=== PATIENT | male | born 2000 | race Caucasian/White ===

== ENCOUNTER 2023-11-27 16:55 | Inpatient (IN) | payer OTHER, SELFPAY ==
[2023-11-27] VITALS (10 sets, daily range): BP systolic 103–253; BP diastolic 64–200; PULSE 46–95; RESP 8–23; TEMP 36.8–36.9; O2SAT 24–100; BMI 21.7; BMI 23.6; BMI 21.8
--- NOTE | 2023-11-27 17:08 | RAD_ITS ---
STUDY: X-RAY - LEFT TIBIA AND FIBULA REASON FOR EXAM: Male, 23 years old. Injury/Pain TECHNIQUE: 2 view(s) of the tibia and fibula were obtained. COMPARISON: None. FINDINGS: Markedly limited by extensive overlying artifact. Comminuted angulated fractures of the distal tibia and fibula with moderate medial displacements of the distal fracture fragments and mild anterior angulation of the fracture apices. RAD/Tibia & Fibula 2 Views IMPRESSION: Limited by extensive overlying artifact. Displacement and angulation, fractures of the distal tibia and fibula. Electronically Signed: Mehdi Negron MD at 17:25 EDT ,
[2023-11-27] MEDS: 0.9% Normal Saline (1000mL) 1,000 ML 150 ML IV (17:15)
--- NOTE | 2023-11-27 17:20 | ED.VIS.LOWEX ---
HPI History of Present Illness Chief Complaint: Lower Extremity Injury Detail of Chief Complaint: Deformity left leg due to blunt trauma Informant: patient and EMS Occured/Mechanism Mechanism/Context: Yes blunt trauma Comment: Treated with 1 foot diameter fell onto his leg. Onset/Context/Timing Onset: Hours Context: Sudden Onset Timing: Continuous Quality of Pain: Dull, Aching and Throbbing Location: Deformity left leg Current Severity: Mild Maximum Severity: Moderate Associated Symptoms Associated Symptoms: Positive for Loss of Funtion; Negative for Parasthesia or Weakness Narrative Narrative: Patient is a 23-year-old male who presents with deformity to his left leg. Arrived by ambulance. Tree branch with the foot diameter landed on his leg. He has not eaten since noon. He denies allergies to any medication. He is allergic to cinnamon. He has had no prior injury of trauma. Prior similar symptoms: No Recent Illness/Hospitalization: No [facility] Medical History (Updated 11/27/23 @ 17:[address] Raymond Benjamin MD) Left tibial fracture Medical History no medical history no medical history Allergy/AdvReac Type Severity Reaction Status Date / Time cinnamon Allergy Severe Anaphylaxis Verified 11/27/23 16:58 Surgical History no surgical history no surgical history Social History Smoking Status: Never smoker ROS ROS ED Constitutional Constitutional ED: Denies chills or fever(s) Eyes Eyes: Denies blurry vision or change in vision Cardiovascular Cardiovascular: Denies chest pain or palpitations Respiratory/Chest Respiratory/Chest: Denies dyspnea or dyspnea on exertion Gastrointestinal Gastrointestinal: Denies abdominal pain, nausea or vomiting Musculoskeletal Musculoskeletal: Denies arthralgias, back pain, myalgias or neck pain Integumentary Denies rash Neurologic Neurologic: Denies paresthesias or weakness Hematologic/Lymphatic Hematologic/Lymphatic: Denies easy bleeding or easy bruising EXAM Physical Exam Const Vital Signs: 11/27/23 16:58 Temperature 98.2 F Temperature Source Temporal Pulse Rate 77 Respiratory Rate 16 Blood Pressure 124/84 H Blood Pressure Mean 97 Pulse Ox 97 Oxygen Delivery Method Room Air Positive well nourished and well developed General Appearance ED: well developed and NAD HEENT Reports moist mucous membranes normocephalic and atraumatic Eyes PERRL Eyes Narrative: Extract muscle intact. Sclera is anicteric. No subconjunctival hemorrhage. Neck full ROM and supple Neck Narrative: No posterior midline pain. Resp normal respiratory effort, no retractions and clear to auscultation bilaterally Cardio regular rate, regular rhythm, S1 normal heart sound, S2 normal heart sound and no murmurs GI non-tender, non-distended and no masses GI Narrative: No pain the patient in the pelvis. Auscultation: normoactive bowel sounds Palpation: soft Back/Spine no CVA tenderness Extremity Negative for normal to inspection or full ROM Extremity Narrative: Obvious deformity left leg. DP PT pulse palpable. Able to move his toes. There is no evidence of trauma or swelling of the knee. There is no pain ovation of the lateral medial malleolus. General Extremety ED: Negative for weight-bearing difficulty General Extremity: Negative for weight-bearing difficulty Neuro oriented x3 and CN's II-XII intact bilaterally Sensorium / Orientation: alert Psych mental status grossly normal Skin no wounds Lesions: no lesions Rashes: no rashes MDM MDM MDM Narrative Medical decision making narrative: X-ray was obtained to the extent of injury. Patient has a comminuted midshaft fracture of the left tibia and fibula. Case was discussed with Dr. Barney and who is on for orthopedics. He would like him in a posterior splint. He will admit the patient. Radiography Diagnostic Testing: Clinical Impression(s) from Imaging Studies Tibia/Fibula X-Ray 11/27/23 17:08 IMPRESSION: Limited by extensive overlying artifact. Displacement and angulation, fractures of the distal tibia and fibula. Electronically Signed: Mehdi Negron MD at 17:25 EDT , Procedures Procedural Sedation 1 (Initial Baseline): Consent Signed: Yes Any Problems With Anesthesia: No You/Your family experience fever (hyperthermia) w/anesthesia: No Sedation medication: Propofol Dose: 200 Route: IV Total Moderate Sedation Units: 15 Maliampati Score: Class I ASA Classification: E and I Comment:: Timeout was called. Patient received a total of 200 mg of propofol. A fabricated posterior short leg splint was applied as well as a sugar-tong splint because of laxity with valgus deformity. This stabilized his leg. He did desaturate to 84%. He was placed on nonrebreather mask and jaw left. Patient did become bradycardic to 48. He was a sinus rhythm initially. After application of posterior leg and sugar-tong splint patient received 0.5 of Dilaudid since he is now awake and talking and complaining of pain. His leg was positioned over soft blankets for comfort. He states the pain is much better at this time. Discharge Plan Triage Chief Complaint: Lower Extremity Injury ED Provider: Raymond Benjamin Dx/Rx/DC Orders Clinical Impression: Nondisplaced comminuted fracture of shaft of left fibula, Displaced comminuted fracture of shaft of left tibia, initial encounter for closed fracture Primary Care Provider: Care Physician,No Primary Referrals: Care Physician,No Primary [Primary Care Provider] - Disposition Disposition: Acute Care Hospital [facility]
--- NOTE | 2023-11-27 17:24 | CON.PCM.OR_ITS ---
HPI Consult Data Date of Consult: 11/27/23 HPI Narrative HPI Narrative: MARIELY CLAYTON, is a 23 M who presents with L midshaft tib fib fracture. Called by Dr. Fonseca. Rich individual tree branch fell onto the leg. [facility] Medical History (Updated 11/27/23 @ 17:25 by Neeraj Lepe MD) Left tibial fracture Medical History no medical history Allergy/AdvReac Type Severity Reaction Status Date / Time cinnamon Allergy Severe Anaphylaxis Verified 11/27/23 16:58 Surgical History no surgical history Social History Smoking Status: Never smoker Vital Signs Vital Signs Vital Signs: 11/27/23 16:58 Temperature 98.2 F Temperature Source Temporal Pulse Rate 77 Respiratory Rate 16 Blood Pressure 124/84 H Blood Pressure Mean 97 Pulse Ox 97 Oxygen Delivery Method Room Air Weight Weight: 178 lb 9.191 oz Body Mass Index (BMI) 21.7 Physical Exam Narrative per dr fonseca closed, nvi no signs of excess pain or compartment syndrome. Imaging comminuted L midshaft tib fib fracture Assessment & Plan Assessment/Plan (1) Left tibial fracture: PLAN: 23 yr M L tibia fracture. Asked the ED doc to splint for now. Will admit and plan for ORIF with IM nail. neuro checks q 4h. elevate rest and ice, NWB. Will see about timeline for case but most likely tomorrow.
--- NOTE | 2023-11-27 17:42 | NURSING ---
MED SURG MOLLRICK LT COMMINUTED FRACTURE TIBULA, FIBULA
[2023-11-27] MEDS: Propofol 200 MG/20 ML Vial IV BOLUS (17:50)
[2023-11-27] MEDS: HYDROmorphone 0.5 MG/0.5 ML SYRINGE IV (17:53)
[2023-11-27] MEDS: Ibuprofen 600 MG Tablet PO (19:08)
[2023-11-27] MEDS: Acetaminophen 500 MG Tablet 1000 MG PO (19:08)
--- NOTE | 2023-11-27 19:53 | CONS.ORTHO ---
HPI Consult Data Date of Consult: 11/27/23 HPI Narrative HPI Narrative: MARIELY CLAYTON, is a 23 M who presents with a left midshaft tibia and fibula fracture sustained today at 3 PM. Patient was at work cutting some trees tree fell on him no loss of consciousness. Compressed him in resulted in a midshaft tibia fracture. No crush injury. Pain is well-controlled at the present moment with Tylenol and anti-inflammatory medications. He has been splinted appropriately by the ED physician. No prior injuries. He is in the emergency department currently room 2. [facility] Medical History (Updated 11/27/23 @ 17:[address] Raymond Benjamin MD) Left tibial fracture Medical History no medical history Home Medications NK 11/27/23 [History Last Taken Unknown] Allergy/AdvReac Type Severity Reaction Status Date / Time cinnamon Allergy Severe Anaphylaxis Verified 11/27/23 16:58 Surgical History no surgical history Social History Smoking Status: Never smoker Vital Signs Vital Signs Vital Signs: 11/27/23 16:58 11/27/23 17:31 11/27/23 17:39 Temperature 98.2 F 98.2 F Temperature Source Temporal Pulse Rate 77 84 Pulse Rate [1 (Initial Baseline)] 89 Pulse Rate [2] 75 Pulse Rate [3] 70 Pulse Rate [4] 56 L Pulse Rate [5] 46 L Pulse Rate [6] 72 Respiratory Rate 16 19 H Respiratory Rate [1 (Initial Baseline)] 20 H Respiratory Rate [2] 14 Respiratory Rate [3] 23 H Respiratory Rate [4] 22 H Respiratory Rate [5] 8 L Respiratory Rate [6] 17 Blood Pressure 124/84 H 136/80 H Blood Pressure [1 (Initial Baseline)] 144/84 H Blood Pressure [2] 124/69 H Blood Pressure [4] 147/120 H Blood Pressure [5] 129/78 H Blood Pressure [6] 108/70 Blood Pressure Mean 97 Pulse Ox 97 100 Oxygen Delivery Method Room Air Nasal Cannula Oxygen Delivery Method [1 (Initial Baseline)] Nasal Cannula Oxygen Delivery Method [2] Nasal Cannula Oxygen Delivery Method [3] Nasal Cannula Oxygen Delivery Method [4] Nasal Cannula Oxygen Delivery Method [5] Non-Rebreather Oxygen Delivery Method [6] Non-Rebreather Oxygen Flow Rate (L/min) 0 Oxygen Flow Rate (L/min) [1 (Initial Baseline)] 2 Oxygen Flow Rate (L/min) [2] 4 Oxygen Flow Rate (L/min) [3] 6 Oxygen Flow Rate (L/min) [4] 6 Oxygen Flow Rate (L/min) [5] 15 Oxygen Flow Rate (L/min) [6] 15 11/27/23 17:53 11/27/23 17:58 11/27/23 18:03 Temperature Temperature Source Pulse Rate Pulse Rate [1 (Initial Baseline)] Pulse Rate [2] Pulse Rate [3] Pulse Rate [4] Pulse Rate [5] Pulse Rate [6] Respiratory Rate Respiratory Rate [1 (Initial Baseline)] Respiratory Rate [2] Respiratory Rate [3] Respiratory Rate [4] Respiratory Rate [5] Respiratory Rate [6] Blood Pressure Blood Pressure [1 (Initial Baseline)] Blood Pressure [2] Blood Pressure [4] Blood Pressure [5] Blood Pressure [6] Blood Pressure Mean Pulse Ox Oxygen Delivery Method Room Air Room Air Room Air Oxygen Delivery Method [1 (Initial Baseline)] Oxygen Delivery Method [2] Oxygen Delivery Method [3] Oxygen Delivery Method [4] Oxygen Delivery Method [5] Oxygen Delivery Method [6] Oxygen Flow Rate (L/min) Oxygen Flow Rate (L/min) [1 (Initial Baseline)] Oxygen Flow Rate (L/min) [2] Oxygen Flow Rate (L/min) [3] Oxygen Flow Rate (L/min) [4] Oxygen Flow Rate (L/min) [5] Oxygen Flow Rate (L/min) [6] 11/27/23 18:00 11/27/23 18:48 11/27/23 19:00 Temperature 98.3 F Temperature Source Pulse Rate 66 62 95 Pulse Rate [1 (Initial Baseline)] Pulse Rate [2] Pulse Rate [3] Pulse Rate [4] Pulse Rate [5] Pulse Rate [6] Respiratory Rate 17 16 16 Respiratory Rate [1 (Initial Baseline)] Respiratory Rate [2] Respiratory Rate [3] Respiratory Rate [4] Respiratory Rate [5] Respiratory Rate [6] Blood Pressure 125/64 H 124/80 H 130/85 H Blood Pressure [1 (Initial Baseline)] Blood Pressure [2] Blood Pressure [4] Blood Pressure [5] Blood Pressure [6] Blood Pressure Mean 84 94 100 Pulse Ox 97 100 98 Oxygen Delivery Method Room Air Room Air Oxygen Delivery Method [1 (Initial Baseline)] Oxygen Delivery Method [2] Oxygen Delivery Method [3] Oxygen Delivery Method [4] Oxygen Delivery Method [5] Oxygen Delivery Method [6] Oxygen Flow Rate (L/min) Oxygen Flow Rate (L/min) [1 (Initial Baseline)] Oxygen Flow Rate (L/min) [2] Oxygen Flow Rate (L/min) [3] Oxygen Flow Rate (L/min) [4] Oxygen Flow Rate (L/min) [5] Oxygen Flow Rate (L/min) [6] Weight Weight: 178 lb 9.191 oz Body Mass Index (BMI) 21.7 Physical Exam Const General Appearance: cooperative and well developed HEENT normocephalic and head/scalp atraumatic Extremity normal capillary refill Extremity Narrative: Left lower extremity splinted. Calf is soft no pain with passive stretch. Normal sensation to the dorsum and plantar aspect of the foot foot is warm and well-perfused wiggle the toes. No pain up at the knee. Some mild soreness to the posterior calf musculature. Good dorsalis pedis pulse foot is warm and well-perfused. Imaging Radiology Impression Tibia/Fibula X-Ray 11/27/23 17:08 IMPRESSION: Limited by extensive overlying artifact. Displacement and angulation, fractures of the distal tibia and fibula. Electronically Signed: Mehdi Negron MD at 17:25 EDT , I independently reviewed the imaging. Concur with radiologist report. Transverse comminuted fracture of the midshaft tibia and fibula. Assessment & Plan Assessment/Plan (1) Displaced comminuted fracture of shaft of left tibia, initial encounter for closed fracture: PLAN: 23-year-old man with midshaft tibia and fibula fracture. I explained to him the diagnosis prognosis different treatment options including doing nothing close treatment with casting and open reduction internal fixation with intramedullary nail. My recommendation would be for surgery in this case given the comminution and prolonged healing and nonweightbearing time with cast treatment although that is an option. The patient is interested in surgery I have marked the left lower extremity admitted the patient neurovascular checks as well as consented the patient for left tibia and fibula open reduction internal fixation with plan for suprapatellar nailing tomorrow and most likely in the afternoon as an add-on case. Very low concern here for developing compartment syndrome therefore the patient can eat but n.p.o. at midnight and no further questions or concerns. Splint rest ice and elevate the leg. Pros and cons risks and benefits were discussed with the patient including but not limited to infection, pain, stiffness, bleeding, damage to surrounding structures, neurovascular injury, recurrence or retear, failure or wear of hardware or fixation, instability, fracture, deep vein thrombosis and pulmonary embolism, anesthetic risks, , patient dissatisfaction, need for further surgery and other risks. Patient understood and wished to proceed with surgery, and signed the informed consent documentation. (2) Nondisplaced comminuted fracture of shaft of left fibula:
[2023-11-27] MEDS: oxyCODONE 5 MG Tablet PO (20:24)
[2023-11-27] MEDS: 0.9% Normal Saline (1000mL) 1,000 ML 125 ML IV (20:26)
[2023-11-28] VITALS (11 sets, daily range): BP systolic 105–161; BP diastolic 64–103; PULSE 50–110; RESP 12–18; TEMP 36.6–37.1; O2SAT 95–100; BMI 21.7
[2023-11-28] MEDS: 0.9% Normal Saline (1000mL) 1,000 ML 125 ML IV ×3 (05:14→21:39)
[2023-11-28] MEDS: Acetaminophen 500 MG Tablet 1000 MG PO ×3 (05:19→21:38)
--- NOTE | 2023-11-28 10:25 | PCM.PN.ORT ---
Subjective Subjective Doing well. Ready for surgery. Pain well controlled. Objective Data Objective Data Vital Signs: Vital Signs Temp Pulse Resp BP Pulse Ox O2 Del Method O2 Flow Rate 98.0 F 59 L 16 113/64 99 Room Air 2 11/28/23 08:30 11/28/23 08:30 11/28/23 08:30 11/28/23 08:30 11/28/23 08:30 11/28/23 08:30 11/27/23 17:39 Oxygen Flow Rate (L/min) [6] 15 Oxygen Flow Rate (L/min) [5] 15 Oxygen Flow Rate (L/min) [3] 6 Oxygen Flow Rate (L/min) [4] 6 Oxygen Flow Rate (L/min) [2] 4 Oxygen Flow Rate (L/min) [1 ( 2 Initial Baseline)] Oxygen Flow Rate (L/min) 0 Oxygen Delivery Method [6] Non-Rebreather Oxygen Delivery Method [5] Non-Rebreather Oxygen Delivery Method [3] Nasal Cannula Oxygen Delivery Method [4] Nasal Cannula Oxygen Delivery Method [2] Nasal Cannula Oxygen Delivery Method [1 ( Nasal Cannula Initial Baseline)] Oxygen Delivery Method Room Air Weight: 164 lb 3.91 oz Body Mass Index (BMI) 21.7 Intake & Output: Intake and Output for Last 24 Hours 11/26/23 11/27/23 11/28/23 23:59 23:59 23:59 Intake Total 577.5 / 977.5 1430 / 1430 Balance 577.5 / 977.5 1430 / 1430 Radiography Diagnostic Testing: Radiology Impression Tibia/Fibula X-Ray 11/27/23 17:08 IMPRESSION: Limited by extensive overlying artifact. Displacement and angulation, fractures of the distal tibia and fibula. Electronically Signed: Mehdi Negron MD at 17:25 EDT , Physical Exam Const alert and oriented x3 Constitutional Narrative: here w mom. wiggles toes, no pain, foot warm well perfused. General Appearance: cooperative and well developed Assessment & Plan Assessment/Plan (1) Displaced comminuted fracture of shaft of left tibia, initial encounter for closed fracture: PLAN: 23 yr M with L tib/fib fracture. Plan for IM nail supra patellar nail. OK to proceed. No further questions. Typically admit for one overnight after tibia ORIF. (2) Nondisplaced comminuted fracture of shaft of left fibula:
--- NOTE | 2023-11-28 11:15 | RAD_ITS ---
STUDY: X-RAY - LEFT TIBIA AND FIBULA REASON FOR EXAM: Male, 23 years old. Intraoperative digital documentation views of tibial rodding. TECHNIQUE: 7 intraoperative digital view(s) of the tibia and fibula were obtained. COMPARISON: November 27, 2023 FINDINGS: 7 intraoperative digital documentation views show placement of tibial intramedullary jim through the previously described mid tibial fracture. Comminuted fracture of the fibula still identified. No complications. RAD/Tibia & Fibula 2 Views IMPRESSION: Intraoperative digital documentation views. Electronically Signed: Laith Faith MD at 13:52 EDT ,
[2023-11-28] MEDS: Cefazolin 2 GM in 0.9% Normal Saline (100mL Bag) 100 ML IV (11:25)
[2023-11-28] MEDS: TRANEXAMIC ACID 1,000 MG in 0.9% Normal Saline (100mL Bag) 100 ML 660 MG IV (11:40)
--- NOTE | 2023-11-28 13:11 | OP.PCM_ITS ---
Problems Associated Problem List Diagnoses (1) Left tibial fracture: (2) Nondisplaced comminuted fracture of shaft of left fibula: (3) Displaced comminuted fracture of shaft of left tibia, initial encounter for closed fracture: Report of Operation Date of Procedure: 11/28/23 Pre-Operative Diagnosis: Left tibia and fibula fracture Post-Operative Diagnosis: Same Surgery/Procedure Performed:: Left tibia and fibula open reduction internal fixation Surgeon: Neeraj Lepe Type of Anesthesia: General Anesthesiologist: Yanick Silva Estimated Blood Loss (mL): 100 Description of Procedure: Patient brought to the operating room theater. Placed supine on the table. 2 g IV Ancef administered prior to start the procedure. 1 g IV tranexamic acid used as well. All bony prominences padded. SCD on the nonoperative leg. General anesthesia administered. Tourniquet applied to the left thigh appropriately padded. Bump on the left hip as well as the left lower extremity bumped up under blankets. Limb prepped and draped in the usual sterile fashion with chlorhexidine-based prep solution allowing over 3 minutes drying time prior to draping. Preoperative timeout performed confirm the site patient the surgery. Began by elevating the limb inflated the tourniquet to 250 mmHg. Made a longitu dinal incision over the distal quadriceps tendon. Carried dissection down through skin and subcutaneous tissue achieved meticulous hemostasis. Longitudinally incised the quadriceps tendon in line with the skin incision. Used the soft tissue sleeve and protector down to the level of the tibial plateau. I took AP and lateral radiographs in a standard fashion. I started the start point at the just off the articular surface of the tibial plateau and lateral radiograph and at the medial aspect of the lateral tibial spine on the AP radiograph. Passed the guidewire down to the posterior aspect of the tibia. Then used the entry reamer over that. Then remove the guide jim and then placed the ball-tipped guidewire with a slight bend down to the fracture site. I tried to manipulate the fracture close means this was impossible to get a good reduction so I did clamp across the fracture site using a longitudinal traction to achieve good reduction I passed the ball-tipped guidewire down to the physeal scar at the distal tibia staying center center on both lateral and AP radiographs. Reduction appeared good. I reamed up to a size 10 reamer this achieved good chatter throughout with somewhat tight isthmus. I measured this to be 370 mm long so I selected a 9 mm diameter Synthes tibial nail 360 mm in length. I passed this down to the appropriate depth. I then used the drop-down guide to insert three 5.0 mm fully threaded cortical screws at the proximal segment. I ensure the reduction was good throughout and then I using perfect [place] technique inserted 2 distal locking screws as well 5.0 mm fully threaded cortical screws from medial to lateral. These were all small stab incisions percutaneous technique. I then took final radiographs AP lateral at the fracture site proximally as well as distally as well as an attempt at 1 full length AP. The length was appropriate of the nail of the rotational alignment was also checked both clinically looking at the foot as well as the lining of the cortices. There is very slight gapping at the fracture site although there was some comminution of the fibula looked appropriately out to length as well so I was happy with the reduction. Tourniquet let down hemostasis achieved. I thoroughly irrigated the knee I palpated the patellar cartilage there was no damage there. I closed this quadriceps tendon split with #1 Vicryl suture as well as subcutaneous tissue with 2-0 Vicryl suture and skin with 3-0 Monocryl. Skin cleaned with wet dry dressing followed application of Steri-Strips Adaptic 4 x 4 gauze ABD dressing and Fernando wrap loosely wrapped. Patient woken up from a general anesthetic transferred off the operating table taken postanesthetic care unit in stable condition. All sponge needle instrument counts were correct no complications plan for the patient mated overnight 1 overnight stay to make sure no compartment syndrome develops although I have a low suspicion at this point as this was not a crush injury. He will be discharged home in the morning. For now weightbearing as tolerated with crutches for 2 weeks. cpt 98005, [id number]? Complications none Admit VTE Documentation VTE Present on Admission: No VTE Mechan Device Prophylaxis: SCD's VTE Pharm Prophylaxis ordered?: Yes Procedures Musculoskeletal [id number]: Other Procedure See Report
[2023-11-28] MEDS: Lactated Ringers 1,000 ML 15 ML IV (13:51)
[2023-11-28] MEDS: oxyCODONE 5 MG Tablet PO ×3 (15:13→22:40)
--- NOTE | 2023-11-28 15:16 | CASEMGMT ---
[facility] Assessment Face to Face with patient for initial transition planning/care coordination assessment. RN DAMARIS introduced self and role at [facility], pt voices understanding. Pt is A&Ox4 and is resting comfortably in bed and is calm. Pt recently returned from PACU. Pt mother at bedside. Care providers, pharmacy, and demographics verified. Admitting dx: Lt tibia Fx PCP: No PCP. 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 Pt may benefit from OP therapy. Pt had surgery performed today and will need to be seen by therapy subsequently. CM to follow therapy in regard to safe DC home from [facility]. Prakash Richard RN, CM
--- NOTE | 2023-11-28 16:02 | NURSING ---
Pt ate jello and flavored ice without any trouble will continue to monitor.
[2023-11-28] MEDS: Ibuprofen 600 MG Tablet PO (16:40)
[2023-11-29 02:06] VITALS: BP 130/83; PULSE 59; RESP 16; TEMP 36.9; O2SAT 100
[2023-11-29] MEDS: 0.9% Normal Saline (1000mL) 1,000 ML 125 ML IV (05:34)
[2023-11-29] MEDS: Acetaminophen 500 MG Tablet 1000 MG PO (05:34)
[2023-11-29 05:40] VITALS: BP 132/82; PULSE 65; RESP 17; TEMP 36.6; O2SAT 99
[2023-11-29 08:12] VITALS: BP 136/85; PULSE 52; RESP 16; TEMP 36.8; O2SAT 100
[2023-11-29] MEDS: Aspirin 81 MG TAB.CHEW PO (08:20)
--- NOTE | 2023-11-29 09:54 | DCINST_ITS ---
Discharge Instructions Diet Discharge Diet: No restrictions Activity Discharge Activity: Use Crutches Ice area for (Minutes): 10 Weight Bearing Status: Weight bearing as tolerated Lifting Restrictions: crutches 2 weeks Keep extremity elevated above heart level: Operative Extremity Dressing / Incision Call your doctor if your incision/area has: Continuous Slow Oozing, Sudden Increased Bleeding, Increased Pain/ Swelling, Increased Redness, Foul Smelling Discharge and Swelling at the incision site Remove Dressing in: 2 days Follow Up Care Please Follow Up With: Neeraj Lepe MD When: next week any time - pls call the office - [facility] Test Results: Test results from this visit will be discussed in further detail at your follow- up appointment, if applicable. Discharge Plan Admission Admit Date/Time: 11/27/23 17:26 Primary Reason for Your Visit: L tibia repair Attending Provider: Neeraj Lepe Primary Care Provider: Care Physician,Leonarda Primary Discharge Orders/Prescriptions Prescriptions: New oxycodone-acetaminophen [Endocet] 5-325 mg tablet 1 tab PO Q4H MDD 6 PRN (Reason: pain) 5 Days Qty: 20 0RF Referrals / Follow Up: Neeraj Lepe MD [Med Staff - Active Staff] - Care Physician,No Primary [Primary Care Provider] - Disposition Disposition (needs filled in before D/C Order can be placed): Home, Self Care
--- NOTE | 2023-11-29 10:19 | CASEMGMT ---
Addendum entered by Romy Haney 11/29/23 15:00: 1215- Pt mother in room, she is not interested in providing pt insurance information as they want workers comp billed. Pt and mother have decided they have crutches to use for pt at home. Pt does not want RN CM to obtain crutches. Pt ready for dc. 2725- FROI given to ER director who will have sign on Sunday. She will then forward to medical records. Original Note: SHITAL OCAMPO received tc from Eli in precert stating pt has not completed FROI. She requests RN DAMARIS have pt sign and complete this then have the ER dr sign and give to medical records. RN DAMARIS into pt room, pt states this hospital stay should be under workers comp. Provided him the FROI and asked to complete top portion. Pt states he would like to wait until his brother comes in to complete and he will be in today. Pt also states he does have another private insurance and his mother has the card. She will be in today as well. 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 TC to [facility], she is aware that the FROI will be completed. TC to 's office requesting rx for crutches, nurse states she will fax to [facility]. SHITAL OCAMPO to follow.
--- NOTE | 2023-11-29 11:20 | PHA.DC_ITS ---
Pharmacy [facility] has performed discharge medication reconciliation and counseling for this patient. The patient's discharge medication list was reviewed for discrepancies and discrepancies were resolved. The patient was counseled on the following discharge medications and changes in medications for homegoing were reviewed. 1. PERCOCET The Reason for Use, instructions for use, and potential side effects were reviewed for all new medications. The patient's questions regarding all of their medications were answered. The patient was able to verbally demonstrate an understanding of their discharge medications. Medications at Discharge Home Medications oxycodone-acetaminophen 5 mg-325 mg tablet (Endocet) 1 tab PO Q4H PRN pain 5 days #20 tabs 11/29/23
[2023-11-29 12:04] VITALS: BP 138/77; PULSE 86; RESP 18; TEMP 36.9; O2SAT 100
--- NOTE | 2023-12-04 09:56 | HP.PCM_ITS ---
HPI - General General Date of Admission: 11/27/23 HPI Narrative MARIELY CLAYTON, is a 23 M who presents for ORIF L tibia. no changes to h and p. will proceed. MR#: [id number] Acct: [id number] Name: MARIELY CLAYTON Rep #: [id number] : 2000 23 From: Neeraj Lepe MD PCP: Care Physician,No Primary Status: ADM IN Location: [place] [address] Subjective Subjective Doing well. Ready for surgery. Pain well controlled. Objective Data Objective Data Vital Signs: Vital Signs Temp Pulse Resp BP Pulse Ox O2 Del Method O2 Flow Rate 98.0 F 59 L 16 113/64 99 Room Air 2 11/28/23 08:30 11/28/23 08:30 11/28/23 08:30 11/28/23 08:30 11/28/23 08:30 11/28/23 08:30 11/27/23 17:39 Oxygen Flow Rate (L/min) [6] 15 Oxygen Flow Rate (L/min) [5] 15 Oxygen Flow Rate (L/min) [3] 6 Oxygen Flow Rate (L/min) [4] 6 Oxygen Flow Rate (L/min) [2] 4 Oxygen Flow Rate (L/min) [1 ( 2 Initial Baseline)] Oxygen Flow Rate (L/min) 0 Oxygen Delivery Method [6] Non-Rebreather Oxygen Delivery Method [5] Non-Rebreather Oxygen Delivery Method [3] Nasal Cannula Oxygen Delivery Method [4] Nasal Cannula Oxygen Delivery Method [2] Nasal Cannula Oxygen Delivery Method [1 ( Nasal Cannula Initial Baseline)] Oxygen Delivery Method Room Air Weight: 164 lb 3.91 oz Body Mass Index (BMI) 21.7 Intake & Output: Intake and Output for Last 24 Hours 11/26/23 11/27/23 11/28/23 23:59 23:59 23:59 Intake Total 577.5 / 977.5 1430 / 1430 Balance 577.5 / 977.5 1430 / 1430 Radiography Diagnostic Testing: Radiology Impression Tibia/Fibula X-Ray 11/27/23 17:08 IMPRESSION: Limited by extensive overlying artifact. Displacement and angulation, fractures of the distal tibia and fibula. Electronically Signed: Mehdi Negron MD at 17:25 EDT , Physical Exam Const alert and oriented x3 Constitutional Narrative: here w mom. wiggles toes, no pain, foot warm well perfused. General Appearance: cooperative and well developed Assessment & Plan Assessment/Plan (1) Displaced comminuted fracture of shaft of left tibia, initial encounter for closed fracture: PLAN: 23 yr M with L tib/fib fracture. Plan for IM nail supra patellar nail. OK to proceed. No further questions. Typically admit for one overnight after tibia ORIF. (2) Nondisplaced comminuted fracture of shaft of left fibula: 11/28/23 1027 <Electronically signed by Neeraj Lepe MD> Cosigner Signature (if applicable): CC: ~ PFSH Medical History Left tibial fracture Non-smoker Home Medications oxycodone-acetaminophen 5 mg-325 mg tablet (Endocet) 1 tab PO Q4H PRN pain 5 days #20 tabs 11/29/23 [Rx Last Taken Unknown] Allergy/AdvReac Type Severity Reaction Status Date / Time cinnamon Allergy Severe Anaphylaxis Verified 12/03/23 14:09 Surgical History no surgical history Social History Smoking Status: Never smoker Vital Signs Vital Signs Vital Signs: Weight Weight: 164 lb 3.91 oz Body Mass Index (BMI) 21.7
== END 2023-11-29 12:25 | disposition home or self-care (01) | DRG 494 ==
LOC: ED 18:14 → MS3 19:42
PROVIDERS: Admitting Provider Orthopaedic Surgery Sports Medicine; Emergency Provider Emergency Medicine; Visit Provider Orthopaedic Surgery Sports Medicine
PROC: 0QSK06Z Reposition Left Fibula with Intramedullary Internal Fixation Device, Open Approach (ICD-10-PCS; principal; 2023-11-28 07:30)
DX: S82.252A Displaced comminuted fracture of shaft of left tibia, initial encounter for closed fracture (principal); S82.455A Nondisplaced comminuted fracture of shaft of left fibula, initial encounter for closed fracture; W20.8XXA Other cause of strike by thrown, projected or falling object, initial encounter; Y93.H9 Activity, other involving exterior property and land maintenance, building and construction; Y99.0 Civilian activity done for income or pay
CPT/HCPCS: 29515; 73590; 76000; 97162; 97166; 99152; 99285; C1713; J7030; J7120; A4216; J2405